=== PATIENT | male | born 1945 | race Caucasian/White ===

== ENCOUNTER → 2017-08-16 | Outpatient (CLI) | payer MEDICARE ==
[~2017-08-16] MED LIST: ASPIRIN81 M1 PO; CITALOPRAM20 MG PO; DAILY MULTIPLE1 TA6 PO; FENOFIBRIC ACI135 M1 PO; FENTANYL TR50 MCG/HR TD; HYDROCODONE/ACE1 T14 PO; IRON PO; LISINOPRIL10 M1 PO; PERCOCET 325 MG1 TA5 PO; STOOL SOFTENER1 EAC1 PO; TAMSULOSIN HCL0.4 MG PO; VITAMIN D PO; ZETIA10 MG PO; ZOCOR80 MG PO
--- NOTE | 2017-08-16 10:00 | NUR ---
INFORMED CONSENT SIGNED FOR LEXISCAN STRESS TEST WITH DR HOPE. RESTING EKG NSR WITH A HR OF 65 AND BP 122/72. CLEAR BREATH SOUNDS DORIS, POX 98% VIA RA. COMPLETED ONE MINUTE OF A LEXISCAN PROTOCOL RECEIVING LEXISCAN 0.4 MG OVER 10 SECONDS. DEVELOPED CHEST DISCOMFORT AND SOB THAT WAS RELIEVED DURING THE RECOVERY PHASE OF THE STRESS TEST. HAD A PEAK HR OF 78, WITH A BP OF 120/58. LAST RECOVERY HR OF 76, WITH A BP OF 124/64.
== END | disposition home or self-care (01) ==
LOC: CARD 03:41
DX: Z01.810 Encounter for preprocedural cardiovascular examination (principal); R53.81 Other malaise

== ENCOUNTER → 2019-07-31 | Outpatient (CLI) | payer MEDICARE, OTHER ==
[2019-07-31 08:59] LABS: PTH INTACT 34.8 pg/mL (18.5-88.0); VITAMIN D, 25-HYDROXY 26.1 ng/mL (30-100)
== END | disposition home or self-care (01) ==
LOC: LAB 07:01 → US 07:30
PROVIDERS: Internal Medicine Nephrology
DX: N18.3 Chronic kidney disease, stage 3 (moderate) (principal); N28.1 Cyst of kidney, acquired

== ENCOUNTER → 2023-09-23 | Outpatient (CLI) | payer MEDICARE, OTHER ==
[~2023-09-23] MED LIST changes: +CEFDINIR300 MG PO; +ELIQUIS5 M1 PO; +ENTRESTO 24 MG1 EACH PO; +FUROSEMIDE20 M1 PO; +JARDIANCE10 MG PO; +METOPROLOL SUCC25 M2 PO
== END | disposition home or self-care (01) ==
LOC: CT 08-24 09:00
PROVIDERS: ATTEND Internal Medicine
DX: J18.9 Pneumonia, unspecified organism (principal); R91.1 Solitary pulmonary nodule; Z95.1 Presence of aortocoronary bypass graft; I25.10 Atherosclerotic heart disease of native coronary artery without angina pectoris; I70.0 Atherosclerosis of aorta; Z90.49 Acquired absence of other specified parts of digestive tract; K86.9 Disease of pancreas, unspecified; M47.814 Spondylosis without myelopathy or radiculopathy, thoracic region

== ENCOUNTER → 2023-10-06 | Day surgery (SDC) | payer MEDICARE, OTHER ==
[~2023-10-06] VITALS: Ht 182.8 cm; Wt 104.3 kg
[~2023-10-06] MED LIST changes: +FENTANYL1 EAC5 T; +FEROSUL325 MG PO; +IRON325 M1 PO; +STOOL SOFTENER100 M3 PO; +TIMOLOL MALEATE5 M7 OD; +TYRVAYA0.03 MG/0. NAS; +VITAMIN D350 MC2 PO
[2023-10-06 08:00] VITALS: BP 117/64
[2023-10-06 09:21] VITALS: BP 88/38
[2023-10-06 09:36] VITALS: BP 99/46
[2023-10-06 09:51] VITALS: BP 108/55
[2023-10-06 10:06] VITALS: BP 105/46
[2023-10-06 10:09] VITALS: BP 105/48
== END | disposition home or self-care (01) ==
LOC: SDC 10-05 11:00
PROVIDERS: ATTEND Internal Medicine Cardiovascular Disease
DX: I48.0 Paroxysmal atrial fibrillation (principal); I10 Essential (primary) hypertension; I25.10 Atherosclerotic heart disease of native coronary artery without angina pectoris; G62.9 Polyneuropathy, unspecified; G51.0 Bell's palsy; Z85.828 Personal history of other malignant neoplasm of skin; I25.2 Old myocardial infarction; Z87.891 Personal history of nicotine dependence

== ENCOUNTER → 2024-01-11 | Outpatient (CLI) | payer MEDICARE, OTHER | END | disposition home or self-care (01) | LOC: CARD 12-12 13:00 | PROVIDERS: ATTEND Internal Medicine Cardiovascular Disease | DX: I08.0 Rheumatic disorders of both mitral and aortic valves (principal) ==

== ENCOUNTER → 2025-01-17 | Outpatient (CLI) | payer OTHER ==
[2025-01-17 14:55] LABS: HEMATOCRIT 28.1 % (42.0-52.0); MEAN CELL VOLUME 111.5 fl (80.0-94.0); MEAN CORPUSCULAR HGB 36.5 pg (27.0-31.0); MEAN CORPUSCULAR HGB CONC 32.7 g/dl (33.0-37.0); MEAN PLATELET VOLUME 9.5 fl (9.6-12.3); PLATELET COUNT AUTOMATED 295 10*3/uL (130-400); RED BLOOD COUNT 2.52 10*6/uL (4.50-5.90); RED CELL DISTRI WIDTH 16.2 % (0-14.5); WHITE BLOOD COUNT 9.7 10*3/uL (4.8-10.8)
[2025-01-17 14:56] LABS: MANUAL DIFF REFLEX YES
[2025-01-17 15:23] LABS: POTASSIUM 4.4 mmol/L (3.4-5.1)
[2025-01-17 15:27] LABS: ACANTHOCYTES MANY; BASOPHILS 1 % (0-1); PLATELET SUFFICIENCY NORMAL (NORMAL); POLYCHROMASIA SLIGHT; TOTAL CELLS COUNTED 100 #CELLS
[2025-01-18 08:08] LABS: HBsAG SCREEN Negative (Negative); HCV Ab Non Reactive (Non Reactive); HEP B CORE Ab, IgM Negative (Negative)
== END | disposition home or self-care (01) ==
LOC: LAB 13:37
PROVIDERS: ATTEND Internal Medicine
DX: M19.072 Primary osteoarthritis, left ankle and foot (principal); R74.8 Abnormal levels of other serum enzymes; D50.9 Iron deficiency anemia, unspecified; L02.612 Cutaneous abscess of left foot; M79.89 Other specified soft tissue disorders; L03.032 Cellulitis of left toe

== ENCOUNTER → 2025-01-22 | Outpatient (CLI) | payer MEDICARE, OTHER | END | disposition home or self-care (01) | LOC: US 01:50 | PROVIDERS: ATTEND Internal Medicine | DX: R74.8 Abnormal levels of other serum enzymes (principal); I10 Essential (primary) hypertension; E78.5 Hyperlipidemia, unspecified; D64.9 Anemia, unspecified; Z90.49 Acquired absence of other specified parts of digestive tract ==

== ENCOUNTER → 2025-01-24 | Outpatient (CLI) | payer MEDICARE, OTHER | END | disposition home or self-care (01) | LOC: WOUNDCARE 01:38 | PROVIDERS: ATTEND Nurse Practitioner Family | DX: S90.412A Abrasion, left great toe, initial encounter (principal); L89.152 Pressure ulcer of sacral region, stage 2; I48.91 Unspecified atrial fibrillation; I12.9 Hypertensive chronic kidney disease with stage 1 through stage 4 chronic kidney disease, or unspecified chronic kidney disease; N18.9 Chronic kidney disease, unspecified; D64.9 Anemia, unspecified; I25.10 Atherosclerotic heart disease of native coronary artery without angina pectoris; E78.5 Hyperlipidemia, unspecified; E55.9 Vitamin D deficiency, unspecified; J44.9 Chronic obstructive pulmonary disease, unspecified; R77.0 Abnormality of albumin; Z87.891 Personal history of nicotine dependence; Z95.1 Presence of aortocoronary bypass graft; Z98.890 Other specified postprocedural states; Z79.82 Long term (current) use of aspirin; Z79.899 Other long term (current) drug therapy; X58.XXXA Exposure to other specified factors, initial encounter; Y93.89 Activity, other specified; Y92.89 Other specified places as the place of occurrence of the external cause; Y99.8 Other external cause status ==

== ENCOUNTER → 2025-02-03 | Outpatient (CLI) | payer OTHER | END | disposition home or self-care (01) | LOC: WOUNDCARE 02:55 | PROVIDERS: ATTEND Nurse Practitioner Family | DX: S90.412D Abrasion, left great toe, subsequent encounter (principal); L89.152 Pressure ulcer of sacral region, stage 2; R60.9 Edema, unspecified; I12.9 Hypertensive chronic kidney disease with stage 1 through stage 4 chronic kidney disease, or unspecified chronic kidney disease; N18.9 Chronic kidney disease, unspecified; D64.9 Anemia, unspecified; R77.0 Abnormality of albumin; E55.9 Vitamin D deficiency, unspecified; I48.91 Unspecified atrial fibrillation; J44.9 Chronic obstructive pulmonary disease, unspecified; I25.10 Atherosclerotic heart disease of native coronary artery without angina pectoris; E78.5 Hyperlipidemia, unspecified; Z95.1 Presence of aortocoronary bypass graft; Z98.890 Other specified postprocedural states; Z87.891 Personal history of nicotine dependence; Z79.82 Long term (current) use of aspirin; Z79.899 Other long term (current) drug therapy; X58.XXXD Exposure to other specified factors, subsequent encounter ==

== ENCOUNTER 2025-02-07 13:04 | Inpatient (IN) | payer MEDICARE, OTHER ==
[~2025-02-07] VITALS: Ht 182.8 cm; Wt 93.6 kg
[~2025-02-07 13:04] MED LIST changes: -FUROSEMIDE20 M1 PO; +LASIX40 MG PO
[2025-02-07 13:27] VITALS: BP 79/40
[2025-02-07] MEDS ORDERED: SODIUM CHLORIDE 0.9% 1,000 ML IV ONE (13:55)
[2025-02-07 14:19] LABS: HEMATOCRIT 26.5 % (42.0-52.0); MEAN CELL VOLUME 110.9 fl (80.0-94.0); MEAN CORPUSCULAR HGB CONC 32.5 g/dl (33.0-37.0); MEAN PLATELET VOLUME 9.8 fl (9.6-12.3); PLATELET COUNT AUTOMATED 264 10*3/uL (130-400); RED BLOOD COUNT 2.39 10*6/uL (4.50-5.90); RED CELL DISTRI WIDTH 16.1 % (0-14.5); WHITE BLOOD COUNT 10.9 10*3/uL (4.8-10.8)
[2025-02-07 14:20] LABS: MANUAL DIFF REFLEX YES
[2025-02-07 14:41] LABS: BASOPHILS 1 % (0-1); TOTAL CELLS COUNTED 100 #CELLS
[2025-02-07 14:42] LABS: BURR CELLS FEW; PLATELET SUFFICIENCY NORMAL (NORMAL)
[2025-02-07 14:44] LABS: POLYCHROMASIA SLIGHT; SCHISTOCYTES FEW
[2025-02-07 14:55] LABS: TOTAL PROTEIN 5.9 gm/dL (6.0-8.0)
[2025-02-07 14:56] VITALS: BP 115/62
[2025-02-07] MEDS ORDERED: Piperacillin Sodium/Tazobact 50 ML IV ONE (15:25)
[2025-02-07] MEDS ORDERED: Vancomycin Hydrochloride 250 ML IV ONE (15:25)
[2025-02-07 15:54] LABS: BILIRUBIN Negative (Negative); BLOOD Negative (Negative); CLARITY Clear (Clear); COLOR Yellow (Yellow); GLUCOSE Trace (Negative); KETONE Negative (Negative); LEUKO ESTERASE Trace (Negative); NITRITE Negative (Negative); PH 6.5 (4.5-8.0)
[2025-02-07 16:02] LABS: RBC 0-2 rbc/hpf (0-2)
[2025-02-07 16:03] LABS: BACTERIA 1+
[2025-02-07] MEDS ORDERED: VENT7GM INH (16:16)
[2025-02-07] MEDS ORDERED: AMIODARONE HYD200 MG PO (16:17)
[2025-02-07] MEDS ORDERED: LIPITOR80 MG PO (16:18)
[2025-02-07] MEDS ORDERED: BREO ELLIPTA 21 EACH INH (16:20)
[2025-02-07] MEDS ORDERED: ELIQUIS2.5 M1 PO (16:21)
[2025-02-07 18:55] VITALS: BP 96/54
[2025-02-07 20:06] VITALS: BP 100/46
[2025-02-07 23:00] VITALS: BP 106/58
[2025-02-07] MEDS ORDERED: dilTIAZem Hydrochloride 100 ML IV SCH (23:00)
[2025-02-07] MEDS ORDERED: dilTIAZem Hydrochloride 25 MG/5 ML VIAL IV ONE (23:00)
[2025-02-08] VITALS (8 sets, daily range): BP systolic 92–108; BP diastolic 45–56
[2025-02-08] MEDS ORDERED: fentaNYL 50 MCG PATCH T SCH (03:45)
[2025-02-08] MEDS ORDERED: Albuterol Sulfate 2.5 MG/3 ML VIAL NEB SCH ×2 (04:45→06:00)
[2025-02-08 06:45] LABS: BASO % 0.3 % (0.0-1.0); EOS # 0.1 10*3/uL (0.0-0.4); EOS % 0.6 % (1.0-4.0); HEMATOCRIT 23.7 % (42.0-52.0); MEAN CORPUSCULAR HGB 34.5 pg (27.0-31.0); MEAN CORPUSCULAR HGB CONC 32.1 g/dl (33.0-37.0); MONO # 0.6 10*3/uL (0.1-1.0); MONO % 7.2 % (3.0-9.0); NEUT # 5.4 10*3/uL (2.3-7.9); NEUT % 68.4 % (47.0-73.0); PLATELET COUNT AUTOMATED 217 10*3/uL (130-400); RED CELL DISTRI WIDTH 16.4 % (0-14.5); WHITE BLOOD COUNT 7.9 10*3/uL (4.8-10.8)
[2025-02-08 07:23] LABS: MEAN CELL VOLUME 107.7 fl (80.0-94.0)
[2025-02-08 07:35] LABS: POTASSIUM 3.3 mmol/L (3.4-5.1); TOTAL PROTEIN 5.4 gm/dL (6.0-8.0)
[2025-02-08] MEDS ORDERED: FENOFIBRATE 145 MG TAB PO SCH (10:00)
[2025-02-08] MEDS ORDERED: TIMOLOL 0.5% OPHTHALMIC 5 ML BOTTLE OPH SCH (10:00)
[2025-02-08] MEDS ORDERED: Cholecalciferol 5,000 IU CAP (125 MCG) PO SCH (10:00)
[2025-02-08] MEDS ORDERED: EMPAGLIFLOZIN 10 MG TABLET PO SCH (10:00)
[2025-02-08] MEDS ORDERED: ATORVASTATIN CALCIUM 80 MG TAB PO SCH (10:00)
[2025-02-08] MEDS ORDERED: EZETIMIBE 10 MG TAB PO SCH (10:00)
[2025-02-08] MEDS ORDERED: MULTIVITAMIN 1 TAB TAB PO SCH (10:00)
[2025-02-08] MEDS ORDERED: FUROSEMIDE 20 MG TAB PO SCH (10:00)
[2025-02-08] MEDS ORDERED: Amiodarone Hydrochloride 200 MG TAB PO SCH (10:00)
[2025-02-08] MEDS ORDERED: ASPIRIN ENTERIC COATED 81 MG TAB PO SCH (10:00)
[2025-02-08] MEDS ORDERED: FERROUS SULFATE 325 MG TAB PO SCH (10:00)
[2025-02-08] MEDS ORDERED: Tamsulosin Hydrochloride 0.4 MG CAP PO SCH (10:00)
[2025-02-08] MEDS ORDERED: METOPROLOL SUCCINATE XR 25 MG TAB PO SCH (10:00)
[2025-02-08] MEDS ORDERED: Acetaminophen/Hydrocodone 5 MG/325 MG TABLET PO SCH (10:00)
[2025-02-08] MEDS ORDERED: APIXABAN 2.5 MG TABLET PO SCH (10:00)
[2025-02-08] MEDS ORDERED: SODIUM CHLORIDE 0.9% 500 ML IV ONE (11:58)
[2025-02-08] MEDS ORDERED: Vancomycin Hydrochloride 1,000 MG in SODIUM CHLORIDE 0.9% 250 ML IV SCH (12:00)
[2025-02-08] MEDS ORDERED: Piperacillin Sodium/Tazobact 50 ML IV SCH ×2 (12:00→21:00)
[2025-02-08] MEDS ORDERED: POTASSIUM CHLORIDE 20 MEQ TAB PO ONE (14:25)
[2025-02-08] MEDS ORDERED: VANCOMYCIN HCL 1,250 MG in SODIUM CHLORIDE 0.9% 250 ML IV SCH (16:00)
[2025-02-08 16:26] LABS: BASO % 0.2 % (0.0-1.0); EOS # 0.1 10*3/uL (0.0-0.4); EOS % 0.8 % (1.0-4.0); HEMATOCRIT 26.1 % (42.0-52.0); MEAN CORPUSCULAR HGB 34.1 pg (27.0-31.0); MEAN PLATELET VOLUME 9.5 fl (9.6-12.3); MONO # 0.6 10*3/uL (0.1-1.0); MONO % 7.4 % (3.0-9.0); PLATELET COUNT AUTOMATED 203 10*3/uL (130-400); RED BLOOD COUNT 2.52 10*6/uL (4.50-5.90); RED CELL DISTRI WIDTH 18.3 % (0-14.5); WHITE BLOOD COUNT 8.2 10*3/uL (4.8-10.8)
[2025-02-08 16:30] LABS: MEAN CELL VOLUME 103.6 fl (80.0-94.0)
[2025-02-08] MEDS ORDERED: FOAM BANDAGE 1 EACH BANDAGE T ONE (17:41)
[2025-02-08] MEDS ORDERED: DOCUSATE SODIUM 100 MG CAP PO SCH (22:00)
[2025-02-09] VITALS: BP 110/58
[2025-02-09 06:08] LABS: BASO % 0.3 % (0.0-1.0); EOS % 0.4 % (1.0-4.0); HEMATOCRIT 26.2 % (42.0-52.0); MEAN CELL VOLUME 104.8 fl (80.0-94.0); MEAN CORPUSCULAR HGB 34.8 pg (27.0-31.0); MEAN CORPUSCULAR HGB CONC 33.2 g/dl (33.0-37.0); MEAN PLATELET VOLUME 10.2 fl (9.6-12.3); MONO # 0.5 10*3/uL (0.1-1.0); MONO % 6.2 % (3.0-9.0); NEUT # 5.6 10*3/uL (2.3-7.9); NEUT % 74.3 % (47.0-73.0); PLATELET COUNT AUTOMATED 206 10*3/uL (130-400); RED CELL DISTRI WIDTH 18.6 % (0-14.5); WHITE BLOOD COUNT 7.6 10*3/uL (4.8-10.8)
[2025-02-09 07:59] LABS: POTASSIUM 4.1 mmol/L (3.4-5.1); TOTAL PROTEIN 5.4 gm/dL (6.0-8.0)
[2025-02-09 08:00] VITALS: BP 106/55
[2025-02-09 12:00] VITALS: BP 100/52
[2025-02-09 16:00] VITALS: BP 95/52
[2025-02-09 20:00] VITALS: BP 103/43
[2025-02-10] VITALS: BP 94/44
[2025-02-10] MEDS ORDERED: Levothyroxine Sodium 50 MCG TAB PO SCH (06:00)
[2025-02-10 06:09] LABS: POTASSIUM 3.7 mmol/L (3.4-5.1); TOTAL PROTEIN 5.3 gm/dL (6.0-8.0)
[2025-02-10 06:23] LABS: BASO % 0.2 % (0.0-1.0); EOS # 0.1 10*3/uL (0.0-0.4); EOS % 0.7 % (1.0-4.0); HEMATOCRIT 26.4 % (42.0-52.0); MEAN CELL VOLUME 105.2 fl (80.0-94.0); MEAN CORPUSCULAR HGB 35.1 pg (27.0-31.0); MEAN CORPUSCULAR HGB CONC 33.3 g/dl (33.0-37.0); MONO # 0.5 10*3/uL (0.1-1.0); MONO % 5.9 % (3.0-9.0); NEUT # 5.8 10*3/uL (2.3-7.9); NEUT % 71.1 % (47.0-73.0); PLATELET COUNT AUTOMATED 188 10*3/uL (130-400); RED BLOOD COUNT 2.51 10*6/uL (4.50-5.90); RED CELL DISTRI WIDTH 18.6 % (0-14.5); WHITE BLOOD COUNT 8.1 10*3/uL (4.8-10.8)
[2025-02-10 08:00] VITALS: BP 102/58
[2025-02-10 12:00] VITALS: BP 101/51
[2025-02-10] MEDS ORDERED: HEEL PROTECTOR DEVICE ONE (14:30)
[2025-02-10] MEDS ORDERED: CHAIR CUSHION DEVICE ONE (14:31)
[2025-02-10 16:00] VITALS: BP 83/46
[2025-02-10 20:00] VITALS: BP 100/54
[2025-02-10] MEDS ORDERED: NYSTATIN 15 GM BOT T SCH (22:00)
[2025-02-11] VITALS: BP 101/56
[2025-02-11] MEDS ORDERED: FOAM BANDAGE 1 EACH BANDAGE T ONE ×2 (00:29→04:09)
[2025-02-11] MEDS ORDERED: Regadenoson 0.4 MG/5 ML SYR IV ONE (05:18)
[2025-02-11 08:00] VITALS: BP 125/71
[2025-02-11] MEDS ORDERED: fentaNYL 50 MCG PATCH T SCH (09:00)
[2025-02-11 12:00] VITALS: BP 102/50
[2025-02-11 12:08] VITALS: BP 129/69
[2025-02-11 16:00] VITALS: BP 101/49
[2025-02-11 20:00] VITALS: BP 117/56
[2025-02-12] VITALS: BP 106/51
[2025-02-12 04:00] VITALS: BP 102/54
[2025-02-12] MEDS ORDERED: VANCOMYCIN HCL 1,250 MG in SODIUM CHLORIDE 0.9% 250 ML IV SCH (06:00)
[2025-02-12 06:09] LABS: BASO % 0.3 % (0.0-1.0); EOS # 0.1 10*3/uL (0.0-0.4); EOS % 0.6 % (1.0-4.0); HEMATOCRIT 25.1 % (42.0-52.0); MEAN CELL VOLUME 106.8 fl (80.0-94.0); MEAN CORPUSCULAR HGB 34.9 pg (27.0-31.0); MEAN CORPUSCULAR HGB CONC 32.7 g/dl (33.0-37.0); MEAN PLATELET VOLUME 10.1 fl (9.6-12.3); MONO # 0.6 10*3/uL (0.1-1.0); MONO % 6.8 % (3.0-9.0); NEUT # 7.3 10*3/uL (2.3-7.9); NEUT % 76.7 % (47.0-73.0); PLATELET COUNT AUTOMATED 187 10*3/uL (130-400); RED BLOOD COUNT 2.35 10*6/uL (4.50-5.90); RED CELL DISTRI WIDTH 18.1 % (0-14.5); WHITE BLOOD COUNT 9.5 10*3/uL (4.8-10.8)
[2025-02-12 06:46] LABS: POTASSIUM 3.1 mmol/L (3.4-5.1)
[2025-02-12 08:00] VITALS: BP 111/57; BP 96/43
[2025-02-12] MEDS ORDERED: POTASSIUM CHLORIDE 20 MEQ TAB PO ONE ×2 (09:30→12:55)
[2025-02-12] MEDS ORDERED: POTASSIUM CHLORIDE 20 MEQ TAB PO SCH (10:00)
[2025-02-12 12:00] VITALS: BP 115/67
[2025-02-12] MEDS ORDERED: ENTRESTO 24 MG1 EACH PO (12:21)
[2025-02-12] MEDS ORDERED: ELIQUIS5 M1 PO (12:22)
[2025-02-12] MEDS ORDERED: GABAPENTIN100 M2 PO (12:24)
[2025-02-12 16:00] VITALS: BP 97/59
[2025-02-12 20:05] VITALS: BP 101/48
[2025-02-13] VITALS (7 sets, daily range): BP systolic 101–112; BP diastolic 42–56
[2025-02-13] MEDS ORDERED: BUPivacaine 0.5% 10 ML VIAL ONE (09:27)
[2025-02-13] MEDS ORDERED: Vancomycin Hydrochloride 1,000 MG VIAL ONE (09:27)
[2025-02-13] MEDS ORDERED: Lactated Ringer's Solution 1,000 ML IV ONE (09:30)
[2025-02-13] MEDS ORDERED: PROPOFOL 200 MG/20 ML VIAL IV ONE (15:44)
[2025-02-13] MEDS ORDERED: LEPTOSPERMUM HONEY 0.5 OZ TUBE T ONE (18:16)
[2025-02-14] VITALS: BP 116/47
[2025-02-14] MEDS ORDERED: Acetaminophen/Hydrocodone 5 MG/325 MG TABLET PO ONE (06:00)
[2025-02-14 08:00] VITALS: BP 105/45
[2025-02-14] MEDS ORDERED: VANCOMYCIN HCL 1,250 MG in SODIUM CHLORIDE 0.9% 250 ML IV SCH (08:00)
[2025-02-14 09:07] LABS: ACID FAST SPEC PROCESSING Tissue Grinding (.)
[2025-02-14] MEDS ORDERED: POTASSIUM CHLORIDE 20 MEQ TAB PO SCH (10:00)
[2025-02-14 12:00] VITALS: BP 101/64
[2025-02-14 20:00] VITALS: BP 96/48
[2025-02-15] VITALS (7 sets, daily range): BP systolic 89–120; BP diastolic 38–60
[2025-02-15 15:27] LABS: BASO % 0.3 % (0.0-1.0); EOS # 0.1 10*3/uL (0.0-0.4); EOS % 1.5 % (1.0-4.0); HEMATOCRIT 25.8 % (42.0-52.0); MEAN CELL VOLUME 107.9 fl (80.0-94.0); MEAN CORPUSCULAR HGB 33.9 pg (27.0-31.0); MEAN CORPUSCULAR HGB CONC 31.4 g/dl (33.0-37.0); MEAN PLATELET VOLUME 9.4 fl (9.6-12.3); MONO # 0.6 10*3/uL (0.1-1.0); MONO % 6.4 % (3.0-9.0); NEUT # 6.2 10*3/uL (2.3-7.9); NEUT % 71.5 % (47.0-73.0); PLATELET COUNT AUTOMATED 203 10*3/uL (130-400); RED BLOOD COUNT 2.39 10*6/uL (4.50-5.90); RED CELL DISTRI WIDTH 17.9 % (0-14.5); WHITE BLOOD COUNT 8.7 10*3/uL (4.8-10.8)
[2025-02-15 15:50] LABS: POTASSIUM 3.8 mmol/L (3.4-5.1)
[2025-02-16] VITALS: BP 99/55
[2025-02-16] MEDS ORDERED: DALVANCE500 MG IV (00:16)
[2025-02-16] MEDS ORDERED: FOAM BANDAGE 1 EACH BANDAGE T ONE (06:22)
[2025-02-16 07:19] LABS: HEMATOCRIT 25.8 % (42.0-52.0); MEAN CELL VOLUME 108.9 fl (80.0-94.0); MEAN CORPUSCULAR HGB CONC 32.2 g/dl (33.0-37.0); MEAN PLATELET VOLUME 9.2 fl (9.6-12.3); PLATELET COUNT AUTOMATED 202 10*3/uL (130-400); RED BLOOD COUNT 2.37 10*6/uL (4.50-5.90); RED CELL DISTRI WIDTH 17.8 % (0-14.5); WHITE BLOOD COUNT 8.5 10*3/uL (4.8-10.8)
[2025-02-16 07:32] LABS: MANUAL DIFF REFLEX YES
[2025-02-16 07:38] LABS: POTASSIUM 4.1 mmol/L (3.4-5.1); TOTAL PROTEIN 5.1 gm/dL (6.0-8.0)
[2025-02-16 07:41] LABS: TOTAL CELLS COUNTED 100 #CELLS
[2025-02-16 07:42] LABS: BURR CELLS MODERATE; PLATELET SUFFICIENCY NORMAL (NORMAL); SCHISTOCYTES MODERATE
[2025-02-16 07:43] LABS: ACANTHOCYTES MODERATE
[2025-02-16 08:00] VITALS: BP 108/52
[2025-02-16 12:00] VITALS: BP 112/58
[2025-02-16 16:00] VITALS: BP 97/54
[2025-02-16 20:00] VITALS: BP 98/44
[2025-02-17] VITALS: BP 99/49
[2025-02-17 04:00] VITALS: BP 97/47
[2025-02-17 08:00] VITALS: BP 103/51
[2025-02-17] MEDS ORDERED: Vancomycin Hydrochloride 750 MG in SODIUM CHLORIDE 0.9% 250 ML IV SCH (10:00)
[2025-02-17 12:00] VITALS: BP 98/53
[2025-02-17] MEDS ORDERED: LEVOTHYROXINE50 MCG PO (12:41)
[2025-02-17 13:25] LABS: POTASSIUM 3.5 mmol/L (3.4-5.1)
[2025-02-17] MEDS ORDERED: FOAM BANDAGE 1 EACH BANDAGE T ONE (15:36)
[2025-02-17 16:00] VITALS: BP 124/80
== END 2025-02-17 16:44 | disposition home health service (06) | DRG 907 ==
LOC: ED 13:04 → EDHOLD 18:15 → 4E 18:15 → ICCU 18:15 → 4E 20:13 → ICCU 02-12 16:17 → 5E 02-15 21:33
PROVIDERS: Internal Medicine; Internal Medicine Nephrology; Nurse Practitioner Family; Podiatrist; ADMIT Internal Medicine; ATTEND Internal Medicine
PROC: 30233N1 Transfusion of Nonautologous Red Blood Cells into Peripheral Vein, Percutaneous Approach (ICD-10-PCS; principal; 2025-02-08)
PROC: 4A02XM4 Measurement of Cardiac Total Activity, External Approach (ICD-10-PCS; 2025-02-11)
PROC: 3E073KZ Introduction of Other Diagnostic Substance into Coronary Artery, Percutaneous Approach (ICD-10-PCS; 2025-02-11)
PROC: 0QBR0ZZ Excision of Left Toe Phalanx, Open Approach (ICD-10-PCS; 2025-02-13)
DX: T36.8X1A Poisoning by other systemic antibiotics, accidental (unintentional), initial encounter (principal); E43 Unspecified severe protein-calorie malnutrition; I21.A1 Myocardial infarction type 2; I50.23 Acute on chronic systolic (congestive) heart failure; L03.116 Cellulitis of left lower limb; I13.0 Hypertensive heart and chronic kidney disease with heart failure and stage 1 through stage 4 chronic kidney disease, or unspecified chronic kidney disease; J21.9 Acute bronchiolitis, unspecified; E10.52 Type 1 diabetes mellitus with diabetic peripheral angiopathy with gangrene; M86.8X7 Other osteomyelitis, ankle and foot; N17.9 Acute kidney failure, unspecified; E10.69 Type 1 diabetes mellitus with other specified complication; D64.9 Anemia, unspecified; E86.0 Dehydration; I95.9 Hypotension, unspecified; I25.5 Ischemic cardiomyopathy; J44.9 Chronic obstructive pulmonary disease, unspecified; I25.10 Atherosclerotic heart disease of native coronary artery without angina pectoris; I25.2 Old myocardial infarction; I48.91 Unspecified atrial fibrillation; N18.9 Chronic kidney disease, unspecified; N40.0 Benign prostatic hyperplasia without lower urinary tract symptoms; E78.5 Hyperlipidemia, unspecified; E10.40 Type 1 diabetes mellitus with diabetic neuropathy, unspecified; D63.8 Anemia in other chronic diseases classified elsewhere; E87.6 Hypokalemia; Z82.3 Family history of stroke; Y92.89 Other specified places as the place of occurrence of the external cause; Z79.1 Long term (current) use of non-steroidal anti-inflammatories (NSAID); Z95.1 Presence of aortocoronary bypass graft; Z85.828 Personal history of other malignant neoplasm of skin; Z79.82 Long term (current) use of aspirin; Z79.899 Other long term (current) drug therapy; Z83.3 Family history of diabetes mellitus; Z82.49 Family history of ischemic heart disease and other diseases of the circulatory system; Z68.24 Body mass index [BMI] 24.0-24.9, adult

== ENCOUNTER → 2025-02-26 | Outpatient (CLI) | payer MEDICARE, OTHER ==
[~2025-02-26] MED LIST changes: +AMIODARONE HYD200 MG PO; +BREO ELLIPTA 21 EACH INH; +DALVANCE500 MG IV; +ELIQUIS2.5 M1 PO; +GABAPENTIN100 M2 PO; +LEVOTHYROXINE50 MCG PO; +LIPITOR80 MG PO; +VENT7GM INH
== END | disposition home or self-care (01) ==
LOC: WOUNDCARE 02:30 → LAB 02:30 → WOUNDCARE 03:15
PROVIDERS: ATTEND Nurse Practitioner Family
DX: L89.136 Pressure-induced deep tissue damage of right lower back (principal); L89.152 Pressure ulcer of sacral region, stage 2; S90.412D Abrasion, left great toe, subsequent encounter; S31.000A Unspecified open wound of lower back and pelvis without penetration into retroperitoneum, initial encounter; I12.9 Hypertensive chronic kidney disease with stage 1 through stage 4 chronic kidney disease, or unspecified chronic kidney disease; N18.9 Chronic kidney disease, unspecified; I25.10 Atherosclerotic heart disease of native coronary artery without angina pectoris; I48.91 Unspecified atrial fibrillation; J44.9 Chronic obstructive pulmonary disease, unspecified; D64.9 Anemia, unspecified; E55.9 Vitamin D deficiency, unspecified; E78.5 Hyperlipidemia, unspecified; R77.0 Abnormality of albumin; Z95.1 Presence of aortocoronary bypass graft; Z87.891 Personal history of nicotine dependence; Z98.890 Other specified postprocedural states; Z79.82 Long term (current) use of aspirin; Z79.899 Other long term (current) drug therapy; X58.XXXD Exposure to other specified factors, subsequent encounter; X58.XXXA Exposure to other specified factors, initial encounter; Y93.89 Activity, other specified; Y92.89 Other specified places as the place of occurrence of the external cause; Y99.8 Other external cause status